=== PATIENT | female | born 1940 | race Caucasian/White ===

== ENCOUNTER 2023-03-27 13:56 | Emergency (ER) | payer MEDICARE | END 2023-03-27 15:41 | disposition home or self-care (01) | LOC: JP.ED 13:56 | DX: M25.571 Pain in right ankle and joints of right foot (principal); E11.22 Type 2 diabetes mellitus with diabetic chronic kidney disease; N18.32 Chronic kidney disease, stage 3b; I50.9 Heart failure, unspecified; E78.00 Pure hypercholesterolemia, unspecified; Z79.01 Long term (current) use of anticoagulants; Z79.899 Other long term (current) drug therapy | CPT/HCPCS: 73610-26-RT; 73610-RT; 99283 ==

== ENCOUNTER 2024-03-08 06:27 | Emergency (ER) | payer MEDICARE ==
[2024-03-08] MEDS: 50% Dextrose in Water 50 ML Syringe IVPUSH ONE (08:18)
== END 2024-03-08 08:59 | disposition home or self-care (01) ==
LOC: JP.ED 06:27
DX: E16.2 Hypoglycemia, unspecified (principal); I50.9 Heart failure, unspecified; E78.00 Pure hypercholesterolemia, unspecified; E11.9 Type 2 diabetes mellitus without complications; Z79.4 Long term (current) use of insulin; Z79.899 Other long term (current) drug therapy; Z91.030 Bee allergy status; Z91.041 Radiographic dye allergy status
CPT/HCPCS: 82947; 96374; 99283; 99285-25